=== PATIENT | male | born 1965 | race African-American/Black ===

== ENCOUNTER 2016-08-05 10:49 | Emergency (ER) | payer SELFPAY ==
[~2016-08-05] VITALS: Ht 182.9 cm; Wt 92.1 kg
[2016-08-05] MEDS ORDERED: METRONIDAZOLE500 MG ORAL (11:06)
[2016-08-05] MEDS ORDERED: BACTRIM DS TAB1 EAC1 ORAL (11:06)
[2016-08-05] MEDS ORDERED: Famotidine 20 MG/ 2ML VIAL IVP ONE (11:15)
[2016-08-05 11:52] LABS: EOSINOPHILS % (AUTO) 1.5 % (0.0-3.0); MEAN CORPUSCULAR HGB CONC 32.8 G/DL (32.0-36.0); MEAN CORPUSCULAR VOLUME 95 FL (80-99); MEAN PLATELET VOLUME 8.8 FL (6.5-10.1); MONOCYTES % (AUTO) 6.3 % (1.0-10.0); NEUTROPHILS % (AUTO) 63.2 % (45.0-75.0); PLATELET COUNT 340 K/UL (150-450); RED CELL DISTRIBUTION WIDTH 12.5 % (11.6-14.8); WHITE BLOOD COUNT 5.1 K/UL (4.8-10.8)
[2016-08-05 11:59] LABS: PROTHROMBIN TIME 10.1 SEC (9.30-11.50)
[2016-08-05] MEDS ORDERED: Sucralfate 1gm tab ORAL ONE (12:30)
[2016-08-05 12:51] LABS: ALANINE AMINOTRANSFERASE 23 U/L (3-41); ALBUMIN/GLOBULIN RATIO 1.5 (1.0-2.7); ANION GAP 13 (5-15); ASPARTATE AMINO TRANSFERASE 24 U/L (5-40); CALCIUM 8.8 mg/dL (8.6-10.2); CARBON DIOXIDE 26 mEQ/L (20-30); CHLORIDE 99 mEQ/L (98-107); CREATININE 1.2 mg/dL (0.7-1.2); GLOMERULAR FILTRATION RATE > 60 mL/min (>60); HEMOLYSIS 44; LIPASE 32 U/L (< 60); SODIUM 138 mEQ/L (135-145); TOTAL PROTEIN 6.4 g/dL (6.6-8.7); TROPONIN I < 0.30 ng/mL (<=0.30)
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
[2016-08-05 14:04] VITALS: BP 142/73
[2016-08-05 14:06] LABS: APPEARANCE,URINE CLEAR; KETONES,URINE NEGATIVE (NEGATIVE); LEUKOCYTE ESTERASE ,URINE NEGATIVE (NEGATIVE); NITRITE,URINE NEGATIVE (NEGATIVE); PH,URINE 7 (4.5-8.0); PROTEIN,URINE NEGATIVE (NEGATIVE); UROBILINOGEN,URINE NORMAL MG/DL (0.0-1.0)
[2016-08-05] MEDS ORDERED: PRILOSEC OTC20 MG ORAL (14:24)
[2016-08-05] MEDS ORDERED: BENTYL10 MG ORAL (14:24)
[2016-08-05 14:28] VITALS: BP 142/73
--- NOTE | 2016-08-10 05:07 | Emergency Room Report ---
History of Present Illness General Chief Complaint: Abdominal Pain Source: Patient Present Illness HPI Patient is a 50-year-old male who presented after increased epigastric pain. The patient had pain for approximately 2 weeks. Patient had prior history of peptic ulcer disease. Patient had recently started on antibiotics. Patient had increased epigastric pain. He denied hematemesis. He denied recent NSAID or alcohol use. He denied any black or bloody stool. He reported having increased pain which was slightly improved by food. Allergies: Coded Allergies: No Known Allergies (Unverified , 08/05/16) Patient History Past Medical History: see triage record Reviewed Nursing Documentation: PMH: Agreed, PSxH: Agreed Nursing Documentation-PMH Past Medical History: No Stated History Review of Systems All Other Systems: negative except mentioned in HPI Physical Exam Vital Signs Date Time Temp Pulse Resp B/P Pulse Ox O2 Delivery O2 Flow Rate FiO2 08/05/16 11:01 98.4 97 14 113/68 100 Room Air Sp02 EP Interpretation: reviewed, normal General Appearance: normal inspection, well appearing, no apparent distress, alert, GCS 15, non-toxic Head: atraumatic ENT: normal ENT inspection, hearing grossly normal, normal voice Neck: normal inspection, full range of motion, supple, no bony tend Respiratory: normal inspection, lungs clear, normal breath sounds, no respiratory distress, no retraction, no wheezing Cardiovascular #1: regular rate, rhythm, no edema Gastrointestinal: normal inspection, normal bowel sounds, non tender, soft, no guarding, no hernia Genitourinary: no CVA tenderness Musculoskeletal: normal inspection, back normal, normal range of motion Neurologic: normal inspection, alert, responsive, speech normal Psychiatric: normal inspection, judgement/insight normal, mood/affect normal Skin: normal inspection, normal color, no rash Medical Decision Making Diagnostic Impression: Primary Impression: Abdominal pain ER Course Patient presented for abdominal pain. Differential diagnoses included ischemic bowel, appendicitis, perforated viscus, abdominal aortic aneurysm, inferior myocardial infarction, viral gastroenteritis Because of complexity of patient's case laboratory testing and imaging studies were ordered. The patient was given IV fluids as well as IV acid blockers. A CT of the abdomen and pelvis read by radiology showed no evidence of perforation or appendicitis or obstruction. Patient was given prescription for acid blockers. The patient is advised to follow up with primary care doctor in 1-2 days. Patient is advised to return if any worsening condition or if any changes in status that are concerning. Labs Test 08/05/16 11:30 08/05/16 12:05 08/05/16 13:45 White Blood Count 5.1 K/UL (4.8-10.8) Red Blood Count 3.60 M/UL (4.70-6.10) Hemoglobin 11.2 G/DL (14.2-18.0) Hematocrit 34.1 % (42.0-52.0) Mean Corpuscular Volume 95 FL (80-99) Mean Corpuscular Hemoglobin 31.0 PG (27.0-31.0) Mean Corpuscular Hemoglobin Concent 32.8 G/DL (32.0-36.0) Red Cell Distribution Width 12.5 % (11.6-14.8) Platelet Count 340 K/UL (150-450) Mean Platelet Volume 8.8 FL (6.5-10.1) Neutrophils (%) (Auto) 63.2 % (45.0-75.0) Lymphocytes (%) (Auto) 27.0 % (20.0-45.0) Monocytes (%) (Auto) 6.3 % (1.0-10.0) Eosinophils (%) (Auto) 1.5 % (0.0-3.0) Basophils (%) (Auto) 2.0 % (0.0-2.0) Prothrombin Time 10.1 SEC (9.30-11.50) Prothromb Time International Ratio 1.0 (0.9-1.1) Activated Partial Thromboplast Time 25 SEC (23-33) Sodium Level 138 mEQ/L (135-145) Potassium Level 4.0 mEQ/L (3.4-4.9) Chloride Level 99 mEQ/L (98-107) Carbon Dioxide Level 26 mEQ/L (20-30) Anion Gap 13 (5-15) Blood Urea Nitrogen 8 mg/dL (7-23) Creatinine 1.2 mg/dL (0.7-1.2) Estimat Glomerular Filtration Rate > 60 mL/min (>60) Glucose Level 105 mg/dL (74-106) Calcium Level 8.8 mg/dL (8.6-10.2) Total Bilirubin 0.2 mg/dL (0.0-1.2) Aspartate Amino Transf (AST/SGOT) 24 U/L (5-40) Alanine Aminotransferase (ALT/SGPT) 23 U/L (3-41) Alkaline Phosphatase 32 U/L (40-129) Troponin I < 0.30 ng/mL (<=0.30) Total Protein 6.4 g/dL (6.6-8.7) Albumin 3.9 g/dL (3.5-5.2) Globulin 2.5 g/dL Albumin/Globulin Ratio 1.5 (1.0-2.7) Lipase 32 U/L (< 60) Urine Color Pale yellow Urine Appearance Clear Urine pH 7 (4.5-8.0) Urine Specific [place] 1.010 (1.005-1.035) Urine Protein Negative (NEGATIVE) Urine Glucose (UA) Negative (NEGATIVE) Urine Ketones Negative (NEGATIVE) Urine Occult Blood Negative (NEGATIVE) Urine Nitrite Negative (NEGATIVE) Urine Bilirubin Negative (NEGATIVE) Urine Urobilinogen Normal MG/DL (0.0-1.0) Urine Leukocyte Esterase Negative (NEGATIVE) Last Vital Signs Date Time Temp Pulse Resp B/P Pulse Ox O2 Delivery O2 Flow Rate FiO2 08/05/16 14:28 98.4 80 14 142/73 100 Room Air Status: improved Disposition: HOME, SELF-CARE Condition: Stable Scripts Dicyclomine Hcl* (BENTYL*) 10 Mg Capsule 10 MG ORAL FOUR TIMES A DAY, #20 CAP Prov: Xavier Boles 08/05/16 Omeprazole Magnesium (PRILOSEC OTC) 20 Mg Tablet.dr 20 MG ORAL DAILY, #30 TAB Prov: Xavier Boles 08/05/16 Patient Instructions: Abdominal Pain, Adult Xavier Boles Aug 10, 2016 05:07
== END 2016-08-05 14:36 | disposition home or self-care (01) ==
LOC: EMR 11:10
DX: R10.9 Unspecified abdominal pain (principal); Z87.11 Personal history of peptic ulcer disease
CPT/HCPCS: 36415; 74177; 80053; 81003; 83690; 84484; 85025; 85610; 85730; 86850; 86900; 86901; 96374; 96375; 99284; Q9967; S0028